=== PATIENT | male | born 1960 | race Caucasian/White ===

== ENCOUNTER 2020-08-22 09:19 | Inpatient (IN) | payer MEDICAID ==
[~2020-08-22] VITALS: Ht 177.8 cm; Wt 102.6 kg
--- NOTE | 2020-08-22 09:27 | NUR ---
915 code neuro paged [phone] neurologist paged [phone] neurologist returned call and spoke with dr hsieh 924 pt arrived and went straight to ct on [address]
[2020-08-22] MEDS ORDERED: LORazepam 2 MG/ML, 1ML ONE (09:32)
--- NOTE | 2020-08-22 09:55 | NUR ---
BACK FROM CT IN ROOM 39, CALM SLEEPING
[2020-08-22] MEDS ORDERED: OMNIPAQUE 350 MG/ML, 100ML BOTTLE ONE (10:09)
--- NOTE | 2020-08-22 10:11 | NUR ---
DR. ANH Sawyer IN ROOM ON TELE PSYCH NO TPA AT THIS TIME PER
[2020-08-22] MEDS ORDERED: LORazepam 2 MG/ML, 1ML IV STA (10:13)
--- NOTE | 2020-08-22 10:14 | NUR ---
PT BIB EMS FROM [facility] WHERE HE WAS FOUND BLUE AT 1025 WITH RIGHT SIDE WEAKNESS AND RIGHT GAZE. PT BECAME COMBATIVE WHEN HE GOT TO THE ER. WENT TO CT AT 0924 AND WAS GIVEN 5MG VERSED BY EMS IM LEFT DELT PER MD, 18 IV STARTED IN RIGHT HAND OUTSIDE THE ER WITH 4 SECURITY GUARDS. 5MG VERSED GIVEN IV, AND 1 MG ATIVAN GIVEN IV PER MD. PT PUT ON NON-REBREATHER AND CONT MANAGER TRAINEE, SPO2, BP Q 1MIN DURING CT. PT IS STILL MOVING BILAT HANDS. VS IN CT AT 0943 HR 111, 126/90, 98% NON-REBREATHER, 0945 HR 116, 120/77. 99% NON-REBREATHER. BACK TO ROOM 39 AT 0951. PT IS CALM IN BED WITH CONT MANAGER TRAINEE, SPO2, BP Q 15 MIN, SIDE RAILS UP X2, CALL LIGHT IN REACH. ON 5L NC AT 97%. WARM BLANKETS GIVEN.
[2020-08-22 10:15] LABS: BASOPHILS % (AUTO) 1 % (0-1); EOSINOPHILS % (AUTO) 3 % (1-7); LYMPHOCYTES % (AUTO) 19 % (22-44); MEAN CORPUSCULAR HEMOGLOBIN 32.1 pg (27.5-34.5); MEAN CORPUSCULAR HGB CONC 33.8 g/dL (33.2-36.2); MEAN PLATELET VOLUME 7.3 fL (7.4-10.4); MONOCYTES % (AUTO) 6 % (2-9); NEUTROPHILS % (AUTO) 71 % (42-75); PLATELET COUNT 382 x10^3/uL (130-400); RED BLOOD COUNT 4.48 x10^6/uL (4.38-5.82); RED CELL DISTRIBUTION WIDTH 14.4 % (9.4-14.8)
[2020-08-22 10:18] LABS: MD NO
--- NOTE | 2020-08-22 10:22 | NUR ---
PT IN COVID ISO PER EMS HE IS COVID +
[2020-08-22 10:50] LABS: INTERNATIONAL NORMALIZED RATIO 1.1 (0.93-1.1); PROTHROMBIN TIME 11.7 Seconds (9.6-11.5)
[2020-08-22 11:38] LABS: SALICYLATE LEVEL < 1.7 mg/dL (2.8-20.0)
--- NOTE | 2020-08-22 12:11 | NUR ---
REPORT FROM JACK RN. PT IN BED, VSS, FALL PRECS, PT MORE VERBAL, ORIENTED TO YEAR, NOT MONTH OR SITUATION, OREINTED TO SELF. BIT L SIDE OF TONGUE NO SUTURABLE LAC THO.
[2020-08-22 12:35] LABS: AMPHETAMINE SCREEN, URINE Negative (Negative); BARBITURATE SCREEN, URINE Negative (Negative); BENZODIAZEPINE SCREEN, URINE Positive (Negative); CANNABINOID SCREEN, URINE Negative (Negative); COCAINE SCREEN, URINE Negative (Negative); METHADONE SCREEN, URINE Negative (Negative); OPIATE SCREEN, URINE Negative (Negative)
--- NOTE | 2020-08-22 14:08 | NUR ---
MOVED TO HOSP BED, GIVEN URINAL .
--- NOTE | 2020-08-22 14:57 | NUR ---
PLAN EEG/MRI.
[2020-08-22] MEDS ORDERED: ENALAPRILAT 1.25 MG/ML, 2ML IVPush PRN (15:00)
[2020-08-22] MEDS ORDERED: ACETAMINOPHEN 325 MG TABLET PO PRN (15:00)
[2020-08-22] MEDS ORDERED: LORazepam 2 MG/ML, 1ML IVPush PRN (15:00)
[2020-08-22] MEDS ORDERED: ONDANSETRON 2MG/ML, 2ML IVPush PRN (15:00)
--- NOTE | 2020-08-22 15:28 | NUR ---
THIS RN TOLD IN REPORT THAT PT HAS COVID PNA, TESTED COVID + PREHOSPITAL. CALLED DR MONSIVAIS TO VERIFY ABX ORDER OR COVID MEDS, NO NEW ORDERS, CXR READ CLEAR.
[2020-08-22] MEDS ORDERED: ENALAPRILAT 1.25 MG/ML, 1ML ONE (17:15)
[2020-08-22] MEDS ORDERED: METO25TA35 PO (17:26)
[2020-08-22] MEDS ORDERED: FOLI-17 PO (17:28)
[2020-08-22] MEDS ORDERED: THIA500T PO (17:28)
[2020-08-22] MEDS ORDERED: MAGN400T36 PO (17:28)
[2020-08-22] MEDS ORDERED: ALLO300T PO (17:28)
--- NOTE | 2020-08-22 17:28 | NUR ---
MED REC UPDATED. PT MORE AWAKE. EATING. SOBER X4 WEEKS. ENALAPRIL PER MAR FOR HTN. ORIENTED TO DATE, SITUATION, PLACE.
--- NOTE | 2020-08-22 17:50 | NUR ---
pt cont to complain he is cold, eduard hugger placed, rectal temp wnl. as
--- NOTE | 2020-08-22 18:09 | NUR ---
bp improved after enalapril. pt sleeping. as
--- NOTE | 2020-08-22 19:07 | NUR ---
report to linn childress rn. as
--- NOTE | 2020-08-22 19:07 | NUR ---
REPORT RECEIVED FROM NIMCO JONES
--- NOTE | 2020-08-22 20:30 | NUR ---
PT RESTING IN HOSPITAL BED. NO NEEDS AT THIS TIME
--- NOTE | 2020-08-22 21:45 | NUR ---
PT A&0X4, RESTING IN HOSPITAL BED. STATES HE "FEELS CRAPPY" AND HIS TONGUE HURTS. PT REFUSING PRN MEDICATION FOR TONGUE AND REFUSING ICE CHIPS. NO NEEDS THIS TIME, WILL CONTINUE TO MONITOR, CALL LIGHT WITHIN REACH. SEIZURE PRECAUTIONS IN PLACE
--- NOTE | 2020-08-22 22:55 | NUR ---
PT SLEEPING IN HOSPITAL BED. PT CONNECTED TO CARDIAC MONTIORS. SEIZURE PRECAUTIONS IN PLACE. NO NEEDS AT THIS TIME
--- NOTE | 2020-08-22 23:46 | NUR ---
REPORT GIVEN TO ANDREW JONES
[2020-08-23 00:14] VITALS: BP 106/65
[2020-08-23 06:15] LABS: BASOPHILS % (AUTO) 1 % (0-1); EOSINOPHILS % (AUTO) 3 % (1-7); LYMPHOCYTES % (AUTO) 24 % (22-44); MEAN CORPUSCULAR HEMOGLOBIN 32.1 pg (27.5-34.5); MEAN PLATELET VOLUME 7.5 fL (7.4-10.4); MONOCYTES % (AUTO) 7 % (2-9); NEUTROPHILS % (AUTO) 65 % (42-75); PLATELET COUNT 398 x10^3/uL (130-400); RED BLOOD COUNT 4.78 x10^6/uL (4.38-5.82); RED CELL DISTRIBUTION WIDTH 14.2 % (9.4-14.8)
[2020-08-23 06:16] LABS: MD NO
[2020-08-23 06:26] LABS: ANION GAP 10 mmol/L (5-15); CALCIUM 9.3 mg/dL (8.5-10.1); CHLORIDE 107 mmol/L (98-107)
[2020-08-23 06:30] LABS: CHOL/HDL RATIO 4.5; CHOLESTEROL, TOTAL 166 mg/dL (140-239); CREATININE 1.01 mg/dL (0.7-1.3); HDL CHOL % 22 % (26-37); HDL CHOLESTEROL (DIRECT) 37 mg/dL (40-60); LDL CHOLESTEROL,CALCULATED 102 mg/dL (54-169); LDL/HDL RATIO 2.8 (0.5-3.0); TRIGLYCERIDES 133 mg/dL (50-200); VLDL CHOLESTEROL 27 mg/dL (0-25)
[2020-08-23 07:05] VITALS: BP 108/71
[2020-08-23] MEDS ORDERED: GADOTERATE 10 MMOL/20 ML VIAL ONE (08:27)
[2020-08-23 13:34] VITALS: BP 124/75
[2020-08-23] MEDS: ASPIRIN 81 MG TABLET EC PO SCH (13:46)
[2020-08-23] MEDS: NICOTINE 21 MG/24 HR PATCH.TD24 TD SCH (17:00)
[2020-08-23 19:26] VITALS: BP 132/81
[2020-08-23] MEDS ORDERED: ATORVASTATIN 80 MG TABLET PO SCH (21:00)
[2020-08-24 02:05] VITALS: BP 126/67
[2020-08-24 08:42] VITALS: BP 150/100
[2020-08-24] MEDS: NICOTINE 21 MG/24 HR PATCH.TD24 TD SCH (09:00)
[2020-08-24] MEDS: ASPIRIN 81 MG TABLET EC PO SCH (13:10)
[2020-08-24 14:04] VITALS: BP 143/87
[2020-08-24 14:36] LABS: ALANINE AMINOTRANSFERASE 22 U/L (12-78); ANION GAP 5 mmol/L (5-15); CALCIUM 9.4 mg/dL (8.5-10.1); CHLORIDE 104 mmol/L (98-107); CREATININE 0.87 mg/dL (0.7-1.3)
[2020-08-24 14:38] LABS: ALKALINE PHOSPHATASE 58 U/L (45-117); BILIRUBIN,TOTAL 0.3 mg/dL (0.2-1.0); TOTAL PROTEIN 7.4 g/dL (6.4-8.2)
[2020-08-24] MEDS ORDERED: DIVA-61 PO (14:55)
[2020-08-24] MEDS ORDERED: ASPI81TA45 PO (14:55)
[2020-08-24] MEDS ORDERED: ATOR-2 PO (14:55)
[2020-08-24] MEDS ORDERED: DIVALPROEX 500 MG TABLET.DR PO SCH (21:00)
== END 2020-08-24 19:02 | disposition home or self-care (01) | DRG 66 ==
LOC: EDBD 09:19 → EDSEX 09:19 → ED 12:47 → EDIP 12:48 → ED 13:13 → SUATTDRO 14:02 → 4EST 08-23 00:11
PROVIDERS: ADMIT Internal Medicine Infectious Disease; ATTEND Hospitalist
DX: I63.9 Cerebral infarction, unspecified (principal); I10 Essential (primary) hypertension; S01.512A Laceration without foreign body of oral cavity, initial encounter; Z79.899 Other long term (current) drug therapy; R00.1 Bradycardia, unspecified; R23.0 Cyanosis; R40.2430 Glasgow coma scale score 3-8, unspecified time; Y93.89 Activity, other specified; Y92.89 Other specified places as the place of occurrence of the external cause; Y99.8 Other external cause status
CPT/HCPCS: 36415; A9575; 70450; 70496; 70498; 70553; 71045; 80047; 80048; 80053; 80061; 80299; 80307; 80320; 80329; 82140; 83036; 83735; 84100; 84443; 85025; 85610; 85730; 93005; 93306; 95816; 96374; 99291; G0378; Q9967; G0480; J2060

== ENCOUNTER 2021-01-05 08:35 | Emergency (ER) | payer MEDICAID ==
[~2021-01-05] VITALS: Ht 172.7 cm; Wt 98.2 kg
[~2021-01-05 08:35] MED LIST: ALLO300T PO; ASPI81TA45 PO; ATOR-2 PO; DIVA-61 PO; FOLI1TAB32 PO; MAGN400T36 PO; METO25TA35 PO; THIA500T PO
--- NOTE | 2021-01-05 08:55 | NUR ---
EKG IN TRIAGE
--- NOTE | 2021-01-05 09:03 | NUR ---
PT TO ROOM 16 W/ C/O HEADACHE AND STATES "I WAS A BIT CONFUSED AND MY LEFT EYE VISION IS BLURRY". PT STATES HE HAD A CVA IN [place]UL[place] WHILE HOSPITALIZED AND STATES SX ARE SIMILAR. SX STARTED " SOON I WOKE UP AROUND 4 AM. I'M NOT SURE IF IT HAPPENED WHILE I WAS SLEEPING". FACE SYMMETRICAL. BILAT EQUAL STRONG BUE AND BLE. MONITORS APPLIED. NADN. VSS. WARM BLANKET PROVIDED. Addendum: 01/05/21 at 0920 by BNICHOLS PT ALSO STATES HX ETOH ABUSE LAST USE YESTERDAY 10/03 [facility].
--- NOTE | 2021-01-05 09:20 | NUR ---
ERP DR. ELLISON AT BEDSIDE FOR EVAL.
[2021-01-05] MEDS ORDERED: SODIUM CHLORIDE FLUSH 10ML SYR IVF ONE (09:30)
[2021-01-05] MEDS ORDERED: ACETAMINOPHEN 500 MG TABLET PO ONE (09:30)
[2021-01-05] MEDS ORDERED: METOPROLOL TARTRATE 50 MG TAB PO ONE (09:30)
[2021-01-05] MEDS ORDERED: METOPROLOL TARTRATE 50 MG TAB ONE (09:31)
[2021-01-05] MEDS ORDERED: ACETAMINOPHEN 500 MG TABLET ONE (09:31)
[2021-01-05 09:37] LABS: BASOPHILS % (AUTO) 2 % (0-1); EOSINOPHILS % (AUTO) 1 % (1-7); LYMPHOCYTES % (AUTO) 17 % (22-44); MEAN CORPUSCULAR HEMOGLOBIN 31.7 pg (27.5-34.5); MEAN CORPUSCULAR HGB CONC 33.9 g/dL (33.2-36.2); MEAN PLATELET VOLUME 7.3 fL (7.4-10.4); MONOCYTES % (AUTO) 6 % (2-9); NEUTROPHILS % (AUTO) 74 % (42-75); PLATELET COUNT 321 x10^3/uL (130-400); RED BLOOD COUNT 5.12 x10^6/uL (4.38-5.82); RED CELL DISTRIBUTION WIDTH 15.9 % (9.4-14.8)
[2021-01-05 09:40] LABS: MD NO
[2021-01-05 10:11] LABS: ALBUMIN 3.8 g/dL (3.4-5.0); ANION GAP 10 mmol/L (5-15); CALCIUM 9.7 mg/dL (8.5-10.1); CHLORIDE 97 mmol/L (98-107); CREATININE 0.88 mg/dL (0.7-1.3)
[2021-01-05 10:15] LABS: TROPONIN I < 0.015 ng/mL (0.000-0.045)
--- NOTE | 2021-01-05 10:18 | NUR ---
PT RESTING ON [place]. RAMBO. VSS. PT TAKEN TO CT IN STABLE CONDITION.
--- NOTE | 2021-01-05 11:29 | NUR ---
PT BP REMAINS ELEVATED. ERP DR. ELLISON AT BEDSIDE FOR RE-EVAL. PT MEDICATED PER NOV.
--- NOTE | 2021-01-05 12:20 | NUR ---
PT BP REMAINS ELEVATED. ERP AWARE. PT STATES ACID REFLUX BURNING STARTED 20 MIN AGO. STATES HE RARELY HAS GERD. EKG COMPLETED. ERP DR. ELLISON NOTIFIED.
[2021-01-05 12:41] VITALS: BP 161/103
--- NOTE | 2021-01-05 12:48 | NUR ---
PER ERP PT BP 161/103 DUDLEY KAP[place]AN DC.
[2021-01-05] MEDS ORDERED: ALUMINUM/MAG/SIMETHICONE 30 ML UDC ONE (12:58)
[2021-01-05] MEDS ORDERED: ALUMINUM/MAG/SIMETHICONE 30 ML UDC PO PRN (13:00)
== END 2021-01-05 13:07 | disposition home or self-care (01) ==
LOC: ED 10:42
DX: R51.9 Headache, unspecified (principal); I10 Essential (primary) hypertension; Z72.9 Problem related to lifestyle, unspecified; F17.210 Nicotine dependence, cigarettes, uncomplicated; Z86.73 Personal history of transient ischemic attack (TIA), and cerebral infarction without residual deficits
CPT/HCPCS: 36415; 70450; 71045; 80048; 82040; 84484; 85025; 93005; 99285; 99406